=== PATIENT | female | born 1980 | race Caucasian/White ===

== ENCOUNTER → 2017-06-10 12:17 | Outpatient (CLI) | payer BC, SELFPAY ==
--- NOTE | 2017-06-10 | BRBX_PTH ---
PATIENT: NIALL ANGULO LOC: [facility] U#:[id number] AGE/SX: 44/F ROOM: RE06/10/[address]: Dr. Madhu Mccabe MD : 1980 BED: DIS: SPEC #: [id number] RECD: 06/10/17 12:10 STATUS: WILL RENETTA #: [id number] VIK: 06/10/17 00:[address]: Madhu Mccabe DEPT: SURGICAL PATHOLOGY RECD BY: Damon Bravo ENTERED: 06/10/17 13:57 SP TYPE: BREAST BX OTHR DR: Dr. Ben Guzman, DO Tissues: Left breast, NOS Procedures: Surgery Specimen Level IV HEADER OPERATION: US guided left breast biopsy PRE-OP DIAGNOSIS: Abnormal mammogram TISSUE SUBMITTED: Left breast biopsy ISCHEMIC TIME: <1 minute FIXATION TIME: 7 hours MICROSCOPIC DIAGNOSIS Left breast, ultrasound-guided core biopsy: Fibrocystic changes, adenosis and intraductal hyperplasia with focal atypia. Negative for malignancy. SJ:damion 06/11/17 COMMENT Correlation with clinical, radiologic findings and appropriate follow up are necessary. Case has been reviewed in consultation with Dr. Lopez who concurs with the above diagnosis. IDC:AM MICROSCOPIC DESCRIPTION Slides are reviewed. GROSS DESCRIPTION Received in fixative is one container labeled with the patient's name and designated left breast biopsy. The specimen consists of multiple elongated fragments of pink-buchanan soft tissue that in aggregate measure 1.7 x 0.5 x 0.1 cm. The specimen is totally submitted in one cassette. / AM:damion 06/10/17 TC:5 CPT: 27740
== END ==
PROVIDERS: Family Provider Family Medicine; PCP Family Medicine; Visit Provider Surgery
DX: R92.8 Other abnormal and inconclusive findings on diagnostic imaging of breast (principal)
CPT/HCPCS: 88305

== ENCOUNTER → 2017-09-03 17:06 | Outpatient (CLI) | payer BC, SELFPAY ==
--- NOTE | 2017-09-03 | ASPS_PTH ---
PATIENT: NIALL ANGULO LOC: [facility] U#:[id number] AGE/SX: 44/F ROOM: RE09/03/[address]: Dr. Madhu Mccabe MD : 1980 BED: DIS: SPEC #: [id number] RECD: 09/03/17 07:47 STATUS: WILL REKurtis #: [id number] VIK: 09/03/17 00:[address]: Madhu Mccabe DEPT: CYTOLOGY RECD BY: Yuri Hudson ENTERED: 09/04/17 07:47 SP TYPE: ASPIRATION OTHR DR: Dr. Ben Guzman, DO Tissues: Left breast, NOS Procedures: Pap Stain (control) Special Stain Group II Cytology Other HEADER OPERATION: Aspiration of left breast nipple PRE-OP DIAGNOSIS: Left breast nipple discharge TISSUE SUBMITTED: Left breast nipple aspirate 4 slides DIAGNOSIS CYTOLOGY Left breast nipple, FNA (smears): Negative for malignant cells. SJ:damion 09/07/17 COMMENT Correlation with clinical findings and appropriate follow up are necessary. Please make reference to previous specimen ([id number]) left breast, ultrasound-guided core biopsy with diagnosis of fibrocystic changes, adenosis and intraductal hyperplasia with focal atypia. CYTOLOGY STUDY Slides are reviewed. The specimen is insufficient for further evaluation as the specimen entirely consists of red blood cells. Ductal cells are not identified. CYTOLOGY GROSS Received are four smears labeled with the patient's name and designated per the requisition as left breast nipple aspirate. Submitted for staining. / 09/04/17 TC: Cannot code CPT: 42962
== END ==
PROVIDERS: Visit Provider Surgery
DX: N64.52 Nipple discharge (principal)
CPT/HCPCS: 88161; 88313